=== PATIENT | female | born 2000 | race African-American/Black ===

== ENCOUNTER 2019-09-13 10:28 | Emergency (ER) | payer MEDICAID ==
[~2019-09-13] VITALS: Ht 152.4 cm; Wt 62.7 kg
[~2019-09-13 10:28] MED LIST: SERT25TA PO
[2019-09-13 10:32] VITALS: BP 128/71
--- NOTE | 2019-09-13 10:36 | NUR ---
Patient ambulated to bed 9. RN evaluating patient at bedside.
--- NOTE | 2019-09-13 10:50 | NUR ---
ERMD AT BEDSIDE
--- NOTE | 2019-09-13 10:50 | NUR ---
c/o r foot pain x2 months. pt states she has been having the pain for about 2 months now but it has exacerbated over the last couple days after she was putting her daughter in the bath. denies injury. no obvious deformity noted. pain is primarily in arch of foot. bed in low position, side rail up x1.
--- NOTE | 2019-09-13 11:12 | NUR ---
instrument processing tech at bedside.
[2019-09-13 12:36] VITALS: BP 121/73
--- NOTE | 2019-09-13 12:36 | NUR ---
Patient discharged with v/s stable. Written and verbal after care instructions given and explained. Patient verbalized understanding. Ambulatory with . All questions addressed prior to discharge. Advised to follow up with PMD.
--- NOTE | 2019-09-13 12:39 | NUR ---
WRAP PT'S RIGHT ANKLE WITH 3" FRANCISCA WRAP, CHECKED PMSC'S BEFORE AND AFTER PLACEMENT OF FRANCISCA WRAP, PLACED ORTHO SHOE ON PT'S RIGHT FOOT THEN PROVIDED PT WITH CRUTHCHES.
== END 2019-09-13 12:36 | disposition home or self-care (01) ==
LOC: MED 10:28
DX: S93.401A Sprain of unspecified ligament of right ankle, initial encounter (principal); Z79.899 Other long term (current) drug therapy; X58.XXXA Exposure to other specified factors, initial encounter; Y92.89 Other specified places as the place of occurrence of the external cause; Y93.89 Activity, other specified; Y99.8 Other external cause status
CPT/HCPCS: 73610; 73630; 99283; Q0092

== ENCOUNTER 2021-01-07 | Emergency (ER) | payer MEDICAID | END 2021-01-07 16:51 | disposition home or self-care (01) | DX: N39.0 Urinary tract infection, site not specified (principal); Z79.899 Other long term (current) drug therapy ==

== ENCOUNTER 2021-03-08 09:56 | Emergency (ER) | payer MEDICAID ==
[~2021-03-08] VITALS: Ht 152.4 cm; Wt 66.2 kg
[~2021-03-08 09:56] MED LIST changes: +NITR100C7 PO
[2021-03-08 09:58] VITALS: BP 117/76
--- NOTE | 2021-03-08 10:03 | NUR ---
PT AMBULATED TO BED 5 WITH STEADY GAIT
--- NOTE | 2021-03-08 10:29 | NUR ---
20 YEAR OLD FEMALE COMPLAINS OF DIZZINESS X 2 DAYS. PT DENIES LOC, DENIES HITTING HEAD. PT DENIES N/V/D OR OTHER SYMPTOMS. PT AOX4, BREATHING EVEN AND UNLABORED, SKIN WARM AND DRY. BED IN LOWEST POSITION, LOCKED, BED RAIL UPX1. PMH - ANEMIA ALLERGIES - NKA
[2021-03-08 10:52] LABS: BASOPHILS % (AUTO) 0.8 % (0.0-2.0); EOSINOPHILS # (AUTO) 0.1 K/uL (0-0.4); EOSINOPHILS % (AUTO) 1.9 % (0.0-4.0); HEMATOCRIT 37.5 % (36-48); HEMOGLOBIN 12.4 g/dL (12.0-16.0); LYMPHOCYTES # (AUTO) 1.1 K/uL (2.5-16.5); LYMPHOCYTES % (AUTO) 22.1 % (20.5-51.1); MEAN CORPUSCULAR HEMOGLOBIN 29 pg (27-31); MEAN CORPUSCULAR HGB CONC 33 g/dL (33-37); MEAN CORPUSCULAR VOLUME 88.3 fL (80-94); MONOCYTES # (AUTO) 0.4 K/uL (0.8-1.0); MONOCYTES % (AUTO) 8.3 % (1.7-9.3); NEUTROPHILS # (AUTO) 3.3 K/uL (1.8-7.7); NEUTROPHILS % (AUTO) 66.9 % (42.2-75.2); PLATELET COUNT (AUTO) 359 K/uL (140-450); RED BLOOD CELL COUNT(AUTO) 4.24 MIL/uL (4.20-5.40); RED CELL DISTRIBUTION WIDTH 14.3 % (11.6-13.7)
[2021-03-08 11:05] LABS: APPEARANCE,URINE CLEAR (CLEAR); BILIRUBIN,URINE NEGATIVE (NEGATIVE); BLOOD, URINE NEGATIVE (NEGATIVE); COLOR,URINE YELLOW (YELLOW); LEUKOCYTE ESTERASE ,URINE 1+ (NEGATIVE); NITRITE, URINE NEGATIVE (NEGATIVE); PH,URINE 6.5 (5.0-9.0); UGLUCOSE NEGATIVE (NEGATIVE)
[2021-03-08 11:27] LABS: ALBUMIN 4.2 g/dL (3.4-5.0); THYROID STIMULATING HORMONE 1.24 uIU/mL (0.34-3.74); TOTAL BILIRUBIN 0.3 mg/dL (0.0-1.0)
[2021-03-08 11:32] LABS: RBC,URINE 0-5 /HPF (0-5); WBC,URINE 0-5 /HPF (0-5)
[2021-03-08 11:59] VITALS: BP 117/76
--- NOTE | 2021-03-08 11:59 | NUR ---
Patient discharged with v/s stable. Written and verbal after care instructions about dizziness given and explained. Patient verbalized understanding. Ambulatory with steady gait. All questions addressed prior to discharge. Advised to follow up with PMD.
== END 2021-03-08 11:59 | disposition home or self-care (01) ==
LOC: MED 09:56
DX: R42 Dizziness and giddiness (principal); D64.9 Anemia, unspecified; Z98.890 Other specified postprocedural states; Z79.899 Other long term (current) drug therapy
CPT/HCPCS: 36415; 80053; 81001; 81025; 84443; 85025; 87086; 93005; 99284

== ENCOUNTER 2022-06-15 09:21 | Emergency (ER) | payer MEDICAID ==
[~2022-06-15] VITALS: Ht 152.4 cm; Wt 70.3 kg
[2022-06-15 09:30] VITALS: BP 127/91
--- NOTE | 2022-06-15 09:34 | NUR ---
22/F WALKED IN C/O VAGINAL BLEED ONSET 2 DAYS ACCOMPANIED BY LOWER BACK PAIN. PT STATES SHE IS 5 WKS . LMP 05/08/22. [id number] NKA PMH: DENIES
[2022-06-15] MEDS ORDERED: ACETAMINOPHEN EXTRA STRENGTH 500 MG TAB PO ONE (10:30)
--- NOTE | 2022-06-15 10:30 | NUR ---
us at bedside
--- NOTE | 2022-06-15 10:54 | NUR ---
phlebotomy at bedside for blood draw
--- NOTE | 2022-06-15 11:54 | NUR ---
us done, lab drawn
[2022-06-15 12:21] LABS: BASOPHILS # (AUTO) 0.1 K/uL (0.00-0.22); EOSINOPHILS % (AUTO) 0.6 % (0.0-4.0); HEMATOCRIT 36.8 % (36-48); HEMOGLOBIN 12.2 g/dL (12.0-16.0); LYMPHOCYTES # (AUTO) 1.6 K/uL (2.5-16.5); LYMPHOCYTES % (AUTO) 25.3 % (20.5-51.1); MEAN CORPUSCULAR HEMOGLOBIN 29 pg (27-31); MEAN CORPUSCULAR HGB CONC 33 g/dL (33-37); MEAN CORPUSCULAR VOLUME 87.3 fL (80-94); MONOCYTES # (AUTO) 0.4 K/uL (0.8-1.0); MONOCYTES % (AUTO) 6.3 % (1.7-9.3); NEUTROPHILS # (AUTO) 4.1 K/uL (1.8-7.7); NEUTROPHILS % (AUTO) 66.8 % (42.2-75.2); PLATELET COUNT (AUTO) 396 K/uL (140-450); RED BLOOD CELL COUNT(AUTO) 4.22 MIL/uL (4.20-5.40); RED CELL DISTRIBUTION WIDTH 13.8 % (11.6-13.7); WHITE BLOOD COUNT (AUTO) 6.2 K/uL (4.8-10.8)
[2022-06-15 12:38] LABS: ALBUMIN 3.8 g/dL (3.4-5.0); ANION GAP 14.3 (8-16); CARBON DIOXIDE 21.7 mmol/L (21-32); CHLORIDE 105 mmol/L (98-107); CREATININE 0.8 mg/dL (0.6-1.3); GFR ARICAN-AMERICAN 113 mL/min (>90); GLUCOSE 87 mg/dL (74-106); SODIUM SERUM 137 mmol/L (136-145); TOTAL BILIRUBIN 0.3 mg/dL (0.0-1.0); UREA NITROGEN, BLOOD 10 mg/dL (7-18)
[2022-06-15 12:47] VITALS: BP 132/69
[2022-06-15] MEDS ORDERED: PRETAB PO (13:03)
--- NOTE | 2022-06-15 13:25 | NUR ---
Patient discharged with v/s stable. Written and verbal after care instructions given and explained. Patient verbalized understanding. Ambulatory with steady gait. All questions addressed prior to discharge. Advised to follow up with PMD.
[2022-06-15] MEDS ORDERED: PNV91TAB10 PO (13:32)
== END 2022-06-15 13:25 | disposition home or self-care (01) ==
LOC: MED 09:21
DX: O30.001 Twin pregnancy, unspecified number of placenta and unspecified number of amniotic sacs, first trimester (principal); Z3A.01 Less than 8 weeks gestation of pregnancy
CPT/HCPCS: 36415; 76801; 80053; 81002; 81025; 84702; 85025; 86886; 86900; 86901; 99284; Q0092